=== PATIENT | female | born 1975 | race Caucasian/White ===

== ENCOUNTER 2019-05-27 06:33 | Observation (INO) | payer BC, OTHER ==
[2019-05-27] VITALS (26 sets, daily range): BP systolic 104–137; BP diastolic 59–71; PULSE 45–59; RESP 12–24; Ht 162.6 cm; Wt 54.7 kg
[~2019-05-27] VITALS: Ht 162.6 cm; Wt 54.7 kg
[2019-05-27] MEDS ORDERED: SOD CHLORIDE 0.9% 1,000 ML IV ONE (12:30)
[2019-05-27] MEDS ORDERED: CEFAZOLIN 1 GM/50 ML (PMX) 50 ML IVPB ONE (12:30)
[2019-05-27] MEDS ORDERED: CEFAZOLIN 1 GM INJ ONE (13:20)
[2019-05-27] MEDS ORDERED: MIDAZOLAM 1 MG/ML 2 ML INJ ONE (13:20)
[2019-05-27] MEDS ORDERED: EPHEDrine 25 MG/5 ML SYG ONE ×2 (13:20→14:27)
[2019-05-27] MEDS ORDERED: SEVOFLURANE 15 MIN ONE (13:20)
[2019-05-27] MEDS ORDERED: LIDOCAINE 2% (SDV) 5 ML INJ ONE (13:20)
[2019-05-27] MEDS ORDERED: FENTAnyl 50 MCG/ML VIAL ONE (13:21)
[2019-05-27] MEDS ORDERED: MEPERIDINE 25 MG INJ IV PRN (13:30)
[2019-05-27] MEDS ORDERED: DIPHENHYDRAMINE 50 MG INJ IV PRN (13:30)
[2019-05-27] MEDS ORDERED: hydrALAzine 20 MG INJ IV PRN (13:30)
[2019-05-27] MEDS ORDERED: FENTAnyl 50 MCG/ML VIAL IV PRN ×3 (13:30)
[2019-05-27] MEDS ORDERED: IPRATROPIUM (NEB) 0.5 MG/2.5 ML AMP HHN PRN (13:30)
[2019-05-27] MEDS ORDERED: ALBUTEROL 0.083% (NEB) 2.5 MG/3 ML AMP HHN PRN (13:30)
[2019-05-27] MEDS ORDERED: OXYCODONE/ACETAMINOPHEN (5/325) TAB PO PRN ×2 (13:30)
[2019-05-27] MEDS ORDERED: ONDANSETRON 4 MG INJ IV PRN ×2 (13:30→15:30)
[2019-05-27] MEDS ORDERED: LABETALOL HCL 20MG INJ IV PRN (13:30)
[2019-05-27] MEDS ORDERED: HYDROmorphONE 1 MG/5 ML IV SYRINGE IV PRN ×3 (13:30)
[2019-05-27] MEDS ORDERED: EPHEDrine 25 MG/5 ML SYG IV PRN (13:30)
[2019-05-27] MEDS ORDERED: ISOSULFAN BLUE 1% 5 ML INJ SC ONE ×2 (13:31→13:42)
[2019-05-27] MEDS ORDERED: DEXAMETHASONE 4 MG/ML 5 ML INJ ONE (13:40)
[2019-05-27] MEDS ORDERED: ONDANSETRON 4 MG INJ ONE (14:07)
[2019-05-27] MEDS ORDERED: PROPOFOL 20 ML ONE ×2 (14:11→14:26)
[2019-05-27] MEDS ORDERED: ACETAMINOPHEN 1000MG/100ML IV 100 ML IVPB PRN (15:30)
[2019-05-27] MEDS: D5W-0.45 NACL + KCL 20 MEQ 1,000 ML IV SCH (17:21)
[2019-05-27] MEDS: morphine 2 MG INJ IV PRN ×2 (17:21→20:45)
[2019-05-27] MEDS ORDERED: HYDROCODONE/APAP (5/325) TAB PO PRN (19:30)
[2019-05-28] MEDS: D5W-0.45 NACL + KCL 20 MEQ 1,000 ML IV SCH ×2 (01:12→11:24)
[2019-05-28 07:58] VITALS: BP 119/64; PULSE 58; RESP 19
[2019-05-28 14:30] VITALS: BP 108/74; PULSE 62; RESP 20
== END 2019-05-28 18:11 | disposition home or self-care (01) ==
LOC: SDS 06:33 → REC 15:33 → MS1 17:04
PROVIDERS: ADMIT Surgery Surgical Oncology; ATTEND Surgery Surgical Oncology
DX: D05.12 Intraductal carcinoma in situ of left breast (principal); Z17.0 Estrogen receptor positive status [ER+]
CPT/HCPCS: 19301; 38525; 38900; 71045; 80053; 81003; 84703; 85025; 85610; 85730; 88307; 88331; J1100; J2250; J2270; J2405; J3010; J3480; J7030; Z7500; Z7512; Z7610; 88342; 96361; 96374; 96376; 99217; G0378; J0690; Q9968